=== PATIENT | male | born 1980 | race Caucasian/White ===

== ENCOUNTER → 2016-05-28 | Outpatient (CLI) | payer MEDICARE ==
[2016-05-28 15:45] LABS: HEMOGLOBIN 15.9 gm/dl (14.0-17.5); RED BLOOD COUNT 5.04 M/UL (4.20-5.50); WHITE BLOOD COUNT 8.3 K/UL (4.5-11.0)
[2016-05-28 16:03] LABS: BUN/CREATININE RATIO 21 (0-10)
== END ==
LOC: LAB 14:52
PROVIDERS: Internal Medicine
DX: F11.20 Opioid dependence, uncomplicated (principal); Z20.5 Contact with and (suspected) exposure to viral hepatitis; Z72.89 Other problems related to lifestyle; Z11.59 Encounter for screening for other viral diseases
CPT/HCPCS: 36415; 80053; 80074; 85027; 87390

== ENCOUNTER 2016-06-02 19:50 | Emergency (ER) | payer MEDICARE | END 2016-06-02 21:24 | disposition home or self-care (01) | LOC: ER1 19:50 | DX: S93.601A Unspecified sprain of right foot, initial encounter (principal); S83.92XA Sprain of unspecified site of left knee, initial encounter; F17.210 Nicotine dependence, cigarettes, uncomplicated; X50.1XXA Overexertion from prolonged static or awkward postures, initial encounter; V03.90XA Pedestrian on foot injured in collision with car, pick-up truck or van, unspecified whether traffic or nontraffic accident, initial encounter; Y92.410 Unspecified street and highway as the place of occurrence of the external cause; Z88.1 Allergy status to other antibiotic agents | CPT/HCPCS: 73564; 73630; 99283; J1885 ==